=== PATIENT | male | born 1955 | race Caucasian/White ===

== ENCOUNTER 2018-11-23 11:58 | Day surgery (SDC) | payer BC, MEDICARE ==
[~2018-11-23] VITALS: Ht 182.9 cm; Wt 90.4 kg
[~2018-11-23 11:58] MED LIST: ACET-1600 PO; ALPH200T2 PO; B CO1TAB14 PO; BACITRACIN 50,000 UNIT ONE; BUPIVACAINE/PF 0.5% ONE; CALC1CAP8 PO; CLIN30SO2 TP; CLOB15CR TP; FISH1CAP PO; GINK120T3 PO; HYDR-3307 PO; IRBE150T25 PO; MULT-658 PO; NABU750T PO; POTA99TA2 PO; PRAV20TA2 PO; TRAZ50TA66 PO; VITAMIN C PO; [UNRECOGNIZED DRUG - OTHER] PO
[2018-11-23] MEDS ORDERED: LACTATED RINGERS 1,000 ML IV SCH (12:24)
[2018-11-23 12:52] VITALS: BP 127/85
[2018-11-23] MEDS ORDERED: MIDAZOLAM 1 MG/ML, 2ML ONE (13:11)
[2018-11-23] MEDS ORDERED: FENTANYL PF 250 MCG/5ML ONE (13:12)
[2018-11-23] MEDS ORDERED: HYDROmorphone 2 MG/ML, 1ML IVPush PRN (13:30)
[2018-11-23] MEDS ORDERED: PROMETHAZINE 25 MG/ML, 1ML IV PRN (13:30)
[2018-11-23] MEDS ORDERED: FENTANYL PF 100 MCG/2ML IV PRN (13:30)
[2018-11-23] MEDS ORDERED: ACETAMINOPHEN 325 MG TABLET PO PRN (13:30)
[2018-11-23] MEDS ORDERED: OXYcodone 5 MG/5 ML ORAL.SOL UDC PO PRN (13:30)
[2018-11-23] MEDS ORDERED: ONDANSETRON 2MG/ML, 2ML IV PRN (13:30)
[2018-11-23] MEDS ORDERED: MEPERIDINE/PF 25MG/0.5ML IVPush PRN (13:30)
[2018-11-23] MEDS ORDERED: hydrALAzine 20 MG/ML, 1ML IV PRN (13:30)
[2018-11-23] MEDS ORDERED: LABETALOL 5MG/ML, 20ML IV PRN (13:30)
[2018-11-23] MEDS ORDERED: CEFAZOLIN 1,000 MG ONE (13:56)
[2018-11-23] MEDS ORDERED: PROPOFOL 10 MG/ML, 20ML ONE (13:56)
[2018-11-23] MEDS ORDERED: DEXAMETHASONE 4 MG/ML, 1ML ONE ×2 (13:57)
[2018-11-23] MEDS ORDERED: CLINDAMYCIN 150 MG/ML, 6ML ONE (13:58)
[2018-11-23] MEDS ORDERED: KETOROLAC 30 MG/1 ML ONE (14:08)
[2018-11-23] MEDS ORDERED: ROCURONIUM 10MG/ML,5ML ONE (14:39)
[2018-11-23] MEDS ORDERED: ONDANSETRON 2MG/ML, 2ML ONE (14:39)
[2018-11-23] MEDS ORDERED: FENTANYL PF 100 MCG/2ML ONE (15:08)
[2018-11-23] MEDS ORDERED: OXYcodone 5 MG/5 ML ORAL.SOL UDC ONE (15:08)
[2018-11-23] MEDS ORDERED: ACETAMINOPHEN 650 MG/20.3 ML UDC ONE (15:16)
== END 2018-11-23 17:20 | disposition home or self-care (01) ==
LOC: OUT 11:58
PROVIDERS: ATTEND Orthopaedic Surgery
DX: M19.041 Primary osteoarthritis, right hand (principal); J45.909 Unspecified asthma, uncomplicated; Z88.1 Allergy status to other antibiotic agents; Z88.8 Allergy status to other drugs, medicaments and biological substances; Z87.891 Personal history of nicotine dependence
CPT/HCPCS: 25310; 25447; 73120; 76000; C1713; J1100; J1885; J2250; J2405; J2704; J3010; J3490; J7120; J0690